=== PATIENT | female | born 1970 | race African-American/Black ===

== ENCOUNTER 2017-04-06 20:52 | Emergency (ER) | payer MEDICAID, OTHER ==
[~2017-04-06] VITALS: Ht 160 cm; Wt 107.0 kg
[~2017-04-06 20:52] MED LIST: HYDR25TA; METO50TA95; RANI150T12
[2017-04-06] MEDS ORDERED: KETOROLAC 30MG/ML VIAL IV STA (21:03)
[2017-04-06] MEDS ORDERED: SODIUM CHLORIDE 0.9% 1,000 ML IV ONE (21:03)
[2017-04-06] MEDS ORDERED: SUMATRIPTAN SUCCINATE 6MG/0.5ML VIAL SUBCUT ONE (21:15)
[2017-04-06] MEDS ORDERED: METOCLOPRAMIDE HCL 10MG/2ML VIAL IV ONE (21:15)
[2017-04-06 23:59] VITALS: BP 152/90
== END 2017-04-07 00:02 | disposition home or self-care (01) ==
LOC: ER 20:52
DX: R51 Headache (principal); I10 Essential (primary) hypertension
CPT/HCPCS: 81025; 96361; 96372; 96374; 96375; 99285; J1885; J2765; J3030; J7030

== ENCOUNTER 2019-06-02 04:42 | Emergency (ER) | payer OTHER, MEDICAID ==
[~2019-06-02] VITALS: Ht 162.6 cm; Wt 100.0 kg
[~2019-06-02 04:42] MED LIST changes: +RANI-655; -RANI150T12
[2019-06-02 06:27] LABS: CHLORIDE 106 mEq/L (98-107)
[2019-06-02] MEDS ORDERED: METOPROLOL TARTRATE 50MG TABLET PO STA (06:27)
[2019-06-02] MEDS ORDERED: HYDROCHLOROTHIAZIDE 25MG TABLET PO ONE (06:30)
[2019-06-02] MEDS ORDERED: ONDANSETRON HCL 4MG/2ML INJ IV ONE (06:30)
[2019-06-02] MEDS ORDERED: KETOROLAC 30MG/ML VIAL IV ONE (06:30)
[2019-06-02 06:37] LABS: BASOPHILS % 0.3 % (0.0-2.0); EOSINOPHILS % 0.9 % (0.0-5.0); HEMATOCRIT. 37.7 % (36.0-48.0); HEMOGLOBIN. 12.3 g/dL (12.0-16.0); LYMPHOCYTES % 31.2 % (20.0-50.0); MEAN CORPUSCULAR HEMOGLOBIN 27.9 pg (28.0-32.0); MEAN CORPUSCULAR VOLUME 85.1 fL (81.0-99.0); MONOCYTES % 7.8 % (2.0-8.0); NEUTROPHILS % 59.8 % (40.0-76.0); PLATELET 316 x1000/uL (130-400); RED BLOOD CELL COUNT 4.43 mill/uL (4.2-5.4); RED CELL DISTRIBUTION WIDTH 14.1 % (11.6-14.6)
[2019-06-02 09:25] VITALS: BP 152/92
[2019-06-02 09:45] LABS: *AMPHETAMINES SCREEN URINE NEGATIVE (NEGATIVE); *BARBITURATES SCREEN URINE NEGATIVE (NEGATIVE); *COCAINE SCREEN URINE NEGATIVE (NEGATIVE)
[2019-06-02 09:46] LABS: *BENZODIAZEPINES SCREEN URINE NEGATIVE (NEGATIVE); METHADONE URINE SCREEN NEGATIVE (NEGATIVE)
[2019-06-02 09:47] LABS: CANNABINOID URINE SCREEN NEGATIVE (NEGATIVE); OPIATES URINE SCREEN NEGATIVE (NEGATIVE); PHENCYCLIDINE URINE SCREEN NEGATIVE (NEGATIVE)
== END 2019-06-02 09:27 | disposition home or self-care (01) ==
LOC: ER 04:42
DX: J06.9 Acute upper respiratory infection, unspecified (principal); R11.10 Vomiting, unspecified; I10 Essential (primary) hypertension; G40.909 Epilepsy, unspecified, not intractable, without status epilepticus; G43.909 Migraine, unspecified, not intractable, without status migrainosus; Z98.890 Other specified postprocedural states
CPT/HCPCS: 36415; 71045; 80053; 80305; 83880; 84484; 85025; 93005; 96374; 96375; 99284; J1885; J2405